=== PATIENT | male | born 1960 | race Caucasian/White ===

== ENCOUNTER 2018-04-09 09:01 | Inpatient (IN) | payer OTHER ==
[~2018-04-09] VITALS: Ht 185.4 cm; Wt 110.2 kg
[2018-04-09 09:16] VITALS: Ht 185.4 cm; Wt 110.2 kg
[2018-04-09 10:34] LABS: BASOPHIL % 0.2 % (0-2); PLATELET COUNT 198 x10^3mcL (130-400); RED CELL DISTRIBUTION WIDTH 12.6 % (11.5-14.5)
[2018-04-09 10:36] LABS: UA SPECIFIC GRAVITY >=1.030 (1.005-1.035); microscopic required? YES; urine erythrocyte NEGATIVE (NEGATIVE)
[2018-04-09 10:45] LABS: AMPHETAMINE QUAL UR NONE DETECTED (See below)
[2018-04-09 10:53] LABS: CHLORIDE SERUM 107 mmol/L (98-107); CREATININE SERUM 1.2 mg/dL (0.7-1.3); GFR1 > 60 mL/min; GLUCOSE SERUM 105 mg/dL (74-106); SODIUM SERUM 137 mmol/L (136-145)
[2018-04-09 10:54] LABS: ALBUMIN 3.7 g/dL (3.4-5.0); ALKALINE PHOSPHATASE 55 U/L (46-116); ALT/SGPT 45 U/L (16-63); AMYLASE 46 U/L (25-115); AST/SGOT 25 U/L (15-37); BILIRUBIN TOTAL 0.5 mg/dL (0.20-1.00); CALCIUM 8.6 mg/dL (8.5-10.1); TOTAL PROTEIN, SERUM 6.6 g/dL (6.4-8.2)
[2018-04-09 10:55] LABS: CHOLESTEROL 163 mg/dL (<200); HDL CHOLESTEROL 50 mg/dL (40-60); MAGNESIUM 2.2 mg/dL (1.8-2.4)
[2018-04-09 11:07] LABS: LIPASE 148 IU/L (73-393)
[2018-04-09 14:16] VITALS: BP 124/73
[2018-04-09 18:16] VITALS: BP 137/84
[2018-04-09 20:13] VITALS: BP 120/72
[2018-04-10 05:11] VITALS: BP 118/74
[2018-04-10 06:53] LABS: BASOPHIL % 0.3 % (0-2); PLATELET COUNT 186 x10^3mcL (130-400); RED CELL DISTRIBUTION WIDTH 12.4 % (11.5-14.5)
[2018-04-10 07:07] LABS: ALKALINE PHOSPHATASE 53 U/L (46-116); ALT/SGPT 38 U/L (16-63); AST/SGOT 23 U/L (15-37); BILIRUBIN TOTAL 0.47 mg/dL (0.20-1.00); CALCIUM 8.4 mg/dL (8.5-10.1); CHLORIDE SERUM 109 mmol/L (98-107); CREATININE SERUM 1.2 mg/dL (0.7-1.3); GFR1 > 60 mL/min; GLUCOSE SERUM 104 mg/dL (74-106); POTASSIUM SERUM 4.3 mmol/L (3.5-5.1); SODIUM SERUM 142 mmol/L (136-145); TOTAL PROTEIN, SERUM 6.2 g/dL (6.4-8.2)
[2018-04-10 07:09] LABS: ALBUMIN 3.2 g/dL (3.4-5.0)
[2018-04-10 09:21] VITALS: BP 132/86
[2018-04-10 12:56] VITALS: BP 142/82
[2018-04-10 17:07] VITALS: BP 122/88
[2018-04-10 20:43] VITALS: BP 118/72
[2018-04-11 05:42] VITALS: BP 125/72
[2018-04-11 06:14] LABS: BASOPHIL % 0.3 % (0-2); PLATELET COUNT 192 x10^3mcL (130-400); RED CELL DISTRIBUTION WIDTH 12.9 % (11.5-14.5)
[2018-04-11 06:19] LABS: ALBUMIN 3.4 g/dL (3.4-5.0); ALKALINE PHOSPHATASE 47 U/L (46-116); ALT/SGPT 39 U/L (16-63); AST/SGOT 23 U/L (15-37); BILIRUBIN DIRECT 0.13 mg/dL (0.0-0.2); BILIRUBIN TOTAL 0.6 mg/dL (0.20-1.00); CALCIUM 8.6 mg/dL (8.5-10.1); CARBON DIOXIDE 25.8 mmol/L (21-32); CHLORIDE SERUM 106 mmol/L (98-107); CREATININE SERUM 1.2 mg/dL (0.7-1.3); GFR1 > 60 mL/min; GLUCOSE SERUM 101 mg/dL (74-106); POTASSIUM SERUM 4.2 mmol/L (3.5-5.1); SODIUM SERUM 139 mmol/L (136-145); TOTAL PROTEIN, SERUM 6.5 g/dL (6.4-8.2)
[2018-04-11 09:16] VITALS: BP 136/91
[2018-04-11] MEDS ORDERED: ASPIR 8181 MG PO (16:22)
[2018-04-11 16:23] VITALS: BP 136/91
== END 2018-04-11 17:00 | disposition home or self-care (01) | DRG 312 ==
LOC: ED 09:01 → DU 12:17
PROVIDERS: Emergency Medicine; Internal Medicine
DX: R55 Syncope and collapse (principal); I24.9 Acute ischemic heart disease, unspecified; I25.2 Old myocardial infarction; G47.30 Sleep apnea, unspecified; E66.9 Obesity, unspecified; Z91.19 Patient's noncompliance with other medical treatment and regimen
CPT/HCPCS: 83880; A9500; G0480; J1644; J2543; J7030; J7040; Q0092